=== PATIENT | male | born 1980 | race Hispanic/Latino ===

== ENCOUNTER → 2018-08-17 | Day surgery (SDC) | payer BC ==
[2018-08-13 08:31] VITALS: BMI 23.5
[~2018-08-17] MED LIST: Propofol 10 mg/ml Inj (20 ML) ONE; Sodium Chloride 0.9% 1,000 ML IV SCH
[2018-08-17 07:34] VITALS: O2SAT 96
[2018-08-17 12:19] VITALS: BP 108/77; PULSE 100; RESP 19; TEMP 97.8
== END | disposition home or self-care (01) ==
LOC: ENDO 07:05
PROVIDERS: ATTEND Internal Medicine Gastroenterology
DX: D50.9 Iron deficiency anemia, unspecified (principal); R53.83 Other fatigue; K57.30 Diverticulosis of large intestine without perforation or abscess without bleeding; Q43.8 Other specified congenital malformations of intestine; K64.8 Other hemorrhoids; K29.80 Duodenitis without bleeding; R10.9 Unspecified abdominal pain; K29.50 Unspecified chronic gastritis without bleeding; K52.9 Noninfective gastroenteritis and colitis, unspecified
CPT/HCPCS: 43239; 45380; 88305; 88312; 88342; J2704; J7030; J7040